=== PATIENT | female | born 1950 | race Two or more races ===

== ENCOUNTER 2022-05-09 08:45 | Inpatient (IN) | payer OTHER ==
[~2022-05-09] VITALS: Ht 152.4 cm; Wt 77.1 kg
[2022-05-16] MEDS ORDERED: LEVSIN/SL0.125 MG SL (13:10)
[2022-05-16] MEDS ORDERED: INTEGRA PLUS C1 EACH PO (13:11)
== END 2022-05-16 15:51 | disposition home or self-care (01) | DRG 329 ==
LOC: O/R 05-13 06:16 → SURH 05-13 06:16 → SURG 05-13 07:00 → SURH 05-13 17:59
PROVIDERS: ADMIT Surgery; ATTEND Surgery
PROC: 07BC4ZZ Excision of Pelvis Lymphatic, Percutaneous Endoscopic Approach (ICD-10-PCS; 2022-05-13)
PROC: 0DTF4ZZ Resection of Right Large Intestine, Percutaneous Endoscopic Approach (ICD-10-PCS; principal; 2022-05-13 07:00)
DX: C18.2 Malignant neoplasm of ascending colon (principal); K65.2 Spontaneous bacterial peritonitis; R59.0 Localized enlarged lymph nodes; K59.09 Other constipation; E11.9 Type 2 diabetes mellitus without complications; Z79.4 Long term (current) use of insulin

== ENCOUNTER 2022-06-10 08:01 | Day surgery (SDC) | payer OTHER ==
[~2022-06-10 08:01] MED LIST: INTEGRA PLUS C1 EACH PO; LEVSIN/SL0.125 MG SL
[2022-06-10] MEDS ORDERED: TRAM1TAB98 PO (10:24)
== END 2022-06-10 13:40 | disposition home or self-care (01) ==
LOC: CIR.AMB 08:01
PROVIDERS: ATTEND Surgery
DX: C18.2 Malignant neoplasm of ascending colon (principal); R59.0 Localized enlarged lymph nodes; K59.09 Other constipation; Z20.822 Contact with and (suspected) exposure to COVID-19; Z03.818 Encounter for observation for suspected exposure to other biological agents ruled out